=== PATIENT | female | born 1945 | race African-American/Black ===

== ENCOUNTER 2017-04-06 12:38 | Emergency (ER) | payer MEDICARE, OTHER ==
[~2017-04-06 12:38] MED LIST: *UNABLE3; ADALAT CC30 MG PO; APRES10B PO; APRES50 PO; ASA/BUT/CAFF OR; ASAB PO; AUG875 PO; CAL12OSR PO; CALCIUM; INDO50 PO; L80 PO; LEVAQUIN5T PO; LOM PO; LONITEN2.5 PO; LOP25 PO; LOP50 PO; MAGNEBIND PO; MEVACOR10 MG PO; MONO20 PO; MONOPRIL40 MG PO; NEPHRO-VITE PO; NIFEDIAC CC30 MG PO; NOVOLOG SC; PAX10 PO; PAX20 PO; PCET PO; PEPCID40 MG OR; PHOSLO PO; PLAVIX PO; PROTONIX PO; PT DOESN'T KNOW MEDS; RENA-VITE PO; RENAGEL800 PO; RENVELA800 MG PO; ROCALTROL 0.0.25 MCG OR; RX OINTMENT TOP; SENSIPAR30 M1 PO; SENSIPAR30 MG OR; SENSIPAR30 MG PO; SEVE800T PO; STRESS PO; TOPXL50 PO; TRIAMCINOLON0.0252 TOP; TRIDERM0.1 % T; UNK INSULIN; V120 PO; VANCOCIN HCL125 MG PO; Z100 PO; ZOL100 PO; [UNRECOGNIZED DRUG - OTHER]; [UNRECOGNIZED DRUG - OTHER] OR; [UNRECOGNIZED DRUG - OTHER] TOP
[2017-04-06 15:32] LABS: BASOPHILS 0.3 %; BASOPHILS ABSOLUTE 0.03 10/3/uL (0.0-0.16); EOSINOPHILS 0.3 %; EOSINOPHILS ABSOLUTE 0.03 10/3/uL (0.0-0.53); ER CBC TAT 0 Hrs 07 Mins; HEMATOCRIT 41.6 % (36.0-48.0); HEMOGLOBIN 12.8 g/dL (12.0-16.0); IMMATURE GRANULOCYTES 0.6 %; IMMATURE GRANULOCYTES ABSOLUTE 0.05 10/3/uL (0.0-0.11); LYMPHOCYTES 8.4 %; LYMPHOCYTES ABSOLUTE 0.73 10/3/uL (0.67-4.30); MANUAL DIFF NO %; MEAN CORPUS HGB CONC 30.8 g/dL (32.0-36.0); MEAN CORPUSCULAR HEMOGLOB 24.3 pg (26.0-34.0); MEAN CORPUSCULAR VOLUME 78.9 fL (80-100); MONOCYTES 6.8 %; MONOCYTES ABSOLUTE 0.59 10/3/uL (0.21-1.20); NEUTROPHILS 83.6 %; PLATELET COUNT 130 10/3/uL (150-400); RBC DISTRIBUTION WIDTH 15.5 % (12.0-16.0); RED CELL COUNT 5.27 10/6/uL (4.0-5.6); WHITE BLOOD CELLS 8.7 10/3/uL (4.5-10.5)
[2017-04-06 15:38] LABS: INTERNATIONAL NORMAL RATI 1.2 UNITS (-); PROTIME (NOT ORD) 14.9 SEC (12.0-14.5)
[2017-04-06 15:44] LABS: A/G RATIO 0.8 (0.7-1.9); ALBUMIN 3.5 G/DL (3.5-5.0); CALCIUM, SERUM 9.1 MG/DL (8.5-10.4); CHLORIDE, SERUM 101 MMOL/L (96-112); CO2 (CARBON DIOXIDE) 27 MMOL/L (24-34); CREATININE 6.22 MG/DL (0.55-1.02); GFR AFRICAN AMERICAN 7 ML/MIN (>=60); GFR NON AFRICAN AMERICAN 6 ML/MIN (>=60); GLOBULIN 4.5 G/DL (2.5-4.1); GLUCOSE, SERUM 97 MG/DL (60-99); POTASSIUM, SERUM 3.7 MMOL/L (3.5-5.3); SGOT(AST) 19 U/L (5-40); SGPT(ALT) 13 U/L (5-65); SODIUM, SERUM 140 MMOL/L (135-148); TOTAL BILIRUBIN 0.7 MG/DL (0-1.2)
[2017-04-06] MEDS ORDERED: *DENIES (15:45)
[2017-04-06 15:46] LABS: ALKALINE PHOSPHATASE 574 U/L (45-117); BUN (BLOOD UREA NITROGEN) 40 MG/DL (6-23)
[2017-04-06 15:52] LABS: GIANT PLATELET FEW; PLATELET ESTIMATE SLT DEC (ADEQUATE); RBC MORPHOLOGY NORM (NORMAL)
== END 2017-04-06 16:59 | disposition short-term general hospital (02) ==
LOC: ER 12:38
PROVIDERS: Emergency Medicine
DX: S12.111A Posterior displaced Type II dens fracture, initial encounter for closed fracture (principal); E78.5 Hyperlipidemia, unspecified; I50.30 Unspecified diastolic (congestive) heart failure; I11.0 Hypertensive heart disease with heart failure; I48.91 Unspecified atrial fibrillation; Z99.2 Dependence on renal dialysis; F32.9 Major depressive disorder, single episode, unspecified; E03.9 Hypothyroidism, unspecified; Z85.528 Personal history of other malignant neoplasm of kidney; Z90.5 Acquired absence of kidney; Z88.5 Allergy status to narcotic agent; Z88.6 Allergy status to analgesic agent; V49.9XXA Car occupant (driver) (passenger) injured in unspecified traffic accident, initial encounter
CPT/HCPCS: 70450; 71010; 72125; 73560-RT; 80053; 85025; 85610; 93005; 99285; A9270-GY; J1170; J2405